=== PATIENT | female | born 1940 ===

== ENCOUNTER 2020-10-01 11:41 | Outpatient (REF) | payer MEDICARE, SELFPAY ==
[2020-10-01 12:30] LABS: Anion Gap 15 (12-20); Blood Urea Nitrogen 8 mg/dL (9-16); Calcium 8.2 mg/dL (8.4-10.2); Carbon Dioxide 24 mmol/L (22-29); Chloride 110 mmol/L (96-108); Estimated Glomerular Filt Rate > 60; Glucose Random 98 mg/dL (60-115); Potassium 3.7 mmol/l (3.3-5.1); Sodium 145 mmol/L (135-145)
== END 2020-10-01 11:42 | disposition home or self-care (01) ==
LOC: HO.HVNA 11:41
PROVIDERS: Visit Provider Family Medicine
DX: I50.9 Heart failure, unspecified (principal)
CPT/HCPCS: 80048